=== PATIENT | female | born 1970 | race Two or more races ===

== ENCOUNTER 2025-04-12 18:56 | Emergency (ER) | payer OTHER ==
[~2025-04-12] VITALS: Ht 160 cm; Wt 81.6 kg
[2025-04-12 19:51] VITALS: BP 117/68; O2SAT 95
[2025-04-12] MEDS ORDERED: 0.9 % SODIUM CHLORIDE 1,000 ML IV ONE (20:45)
[2025-04-12] MEDS ORDERED: INSULIN REGULAR, HUMAN 1,000 UNIT/10 ML UNITS IV ONE (20:45)
[2025-04-12] MEDS ORDERED: FAMOTIDINE/PF 20 MG/2 ML VIAL IV ONE (20:45)
[2025-04-12] MEDS ORDERED: FAMOTIDINE/PF 20 MG/2 ML VIAL ONE (21:09)
[2025-04-12 21:35] LABS: BASO % 0.5 % (0.1-1.2); EOS # 0.21 (0.04-0.54); EOS % 2.8 % (0.7-7.0); LYMPH # 3.09 (1.18-3.74); LYMPH % 41.5 % (19.3-53.1); MEAN PLATELET VOLUME 9.80 fl (9.4-12.4); MONO # 0.67 (0.24-0.82); MONO % 9.0 % (4.7-12.5); NEUT # 3.36 (1.56-6.13); NEUT % 45.3 % (34.0-71.1); RED CELL DISTRIBUTION WIDTH 12.2 % (11.6-14.4)
[2025-04-12 21:42] LABS: URINE APPEARANCE Clear; URINE BILIRRUBIN Negative (NEGATIVE); URINE BLOOD Trace; URINE COLOR Yellow; URINE LEUKOCYTE Negative; URINE NITRATE Negative; URINE PROTEIN Negative (NEGATIVE); URINE UROBILINOGEN 0.2 E.U./dl
[2025-04-12 21:45] LABS: URINE BACTERIA 36.0 uL (0.0-1933); URINE EPITHELIAL CELLS 5.6 uL (0.0-38.8); URINE RBC 2.7 uL (0.0-20.8); URINE WBC 29.0 uL (0.0-23.2)
[2025-04-12 21:46] LABS: URINE CAST 0.29 uL (0.0-1.40); URINE GLUCOSE >=1000 MG/DL (NEGATIVE); URINE KETONE 80 (NEGATIVE)
[2025-04-12 21:51] LABS: COVID-19 AG NEGATIVE (NEGATIVE)
[2025-04-12 22:05] LABS: ALT/SGPT 75.0 U/L (12-78); AST/SGOT 43.0 U/L (15-37); BILIRUBIN TOTAL 0.41 mg/dL (0.3-1.2); BUN CREA RATIO 15.0 (7.0-25.0); CREATININE SERUM 0.88 mg/dL (0.55-1.02); GFR 66.96; GLOBULINA 4.1 G/DL (2.4-3.5); OSMOLALITY SERUM 290.0 MOSM/KG (275-295)
[2025-04-12 22:06] LABS: GLUCOSE FASTING 394.0 mg/dL (65-100)
[2025-04-12] MEDS ORDERED: METFORMIN HCL500 M4 PO (23:07)
[2025-04-13] MEDS ORDERED: METFORMIN HCL500 M3 PO (11:11)
== END 2025-04-13 02:36 | disposition home or self-care (01) ==
LOC: ER 18:56
PROVIDERS: General Practice
DX: R73.9 Hyperglycemia, unspecified (principal); R51.9 Headache, unspecified; Z20.822 Contact with and (suspected) exposure to COVID-19

== ENCOUNTER 2025-04-13 05:17 | Emergency (ER) | payer OTHER ==
[~2025-04-13] VITALS: Ht 160 cm; Wt 81.6 kg
[~2025-04-13 05:17] MED LIST: METFORMIN HCL500 M4 PO
[2025-04-13] MEDS ORDERED: 0.9 % SODIUM CHLORIDE 1,000 ML IV STA (07:34)
[2025-04-13] MEDS ORDERED: INSULIN REGULAR, HUMAN 1,000 UNIT/10 ML UNITS IV ONE (07:45)
[2025-04-13 08:28] LABS: BASO % 0.5 % (0.1-1.2); EOS # 0.20 (0.04-0.54); EOS % 2.7 % (0.7-7.0); LYMPH # 2.49 (1.18-3.74); LYMPH % 34.2 % (19.3-53.1); MEAN PLATELET VOLUME 9.30 fl (9.4-12.4); MONO # 0.49 (0.24-0.82); MONO % 6.7 % (4.7-12.5); NEUT # 4.04 (1.56-6.13); NEUT % 55.5 % (34.0-71.1); RED CELL DISTRIBUTION WIDTH 12.1 % (11.6-14.4)
[2025-04-13 08:49] LABS: INR 1.0
[2025-04-13 09:08] LABS: BUN CREA RATIO 16.0 (7.0-25.0); CREATININE SERUM 0.62 mg/dL (0.55-1.02); GFR 100.31; GLUCOSE FASTING 324.0 mg/dL (65-100); OSMOLALITY SERUM 289.0 MOSM/KG (275-295)
[2025-04-13 09:10] LABS: URINE APPEARANCE Clear; URINE BILIRRUBIN Negative (NEGATIVE); URINE BLOOD Negative; URINE COLOR Yellow; URINE LEUKOCYTE Negative; URINE NITRATE Negative; URINE PROTEIN Negative (NEGATIVE); URINE UROBILINOGEN 0.2 E.U./dl
[2025-04-13 09:15] LABS: URINE BACTERIA 79.1 uL (0.0-1933); URINE EPITHELIAL CELLS 8.9 uL (0.0-38.8); URINE WBC 31.4 uL (0.0-23.2)
[2025-04-13 09:19] LABS: URINE CAST 0.14 uL (0.0-1.40); URINE GLUCOSE >=1000 MG/DL (NEGATIVE); URINE KETONE 80 (NEGATIVE); URINE RBC 0.8 uL (0.0-20.8)
[2025-04-13] MEDS ORDERED: METFORMIN HCL500 M3 PO (11:11)
== END 2025-04-13 11:31 | disposition home or self-care (01) ==
LOC: ER 05:18
PROVIDERS: General Practice
DX: E11.65 Type 2 diabetes mellitus with hyperglycemia (principal); Z79.84 Long term (current) use of oral hypoglycemic drugs